=== PATIENT | female | born 1995 | race Caucasian/White ===

== ENCOUNTER 2017-03-08 22:01 | Emergency (ER) ==
[2017-03-08 22:13] VITALS: BP 105/68; TEMP 99.8; BMI 36.8
[2017-03-08] MEDS ORDERED: BOOSTRIX IM ONE (22:49)
--- NOTE | 2017-03-09 09:07 | ED.PDOC ---
General ED Provider: Dr. RANI ALEX Chief Complaint: Foot Pain/Injury Stated Complaint: patient state she jumped from a boat sustaining a laceration to the left foot. Time Seen by Physician: 23:00 Mode of Arrival: Walk-In Information Source: Patient Exam Limitations: No limitations Primary Care Provider: АНДРЕЙ ROSALES Nursing and Triage Documentation Reviewed and Agree: Yes Skin Complaint Exam - Laceration/Lower Ext. Complaint/Exam Location of Injury: Left, Foot Mechanism of Injury: Laceration Onset/Duration: 1 day Symptoms Are: Still present Initial Severity: Moderate Current Severity: Mild Associated Signs and Symptoms: Denies: Fever, Chills, Erythema, Numbness, Tingling Soles of Feet Picture: 1 - V shapped 3 cm skin flap Differential Diagnoses: Laceration Review of Systems - Review Of Systems Constitutional: Reports: No symptoms Eyes: Reports: No symptoms Ears, Nose, Mouth, Throat: Reports: No symptoms Respiratory: Reports: No symptoms Cardiac: Reports: No symptoms GI: Reports: No symptoms : Reports: No symptoms Musculoskeletal: Reports: No symptoms Skin: Reports: Other (left plantar laceration. ) Neurological: Reports: No symptoms Endocrine: Reports: No symptoms Hematologic/Lymphatic: Reports: No symptoms All Other Systems: Reviewed and Negative Past Medical History - Past Medical History Previously Healthy: Yes Endocrine: Reports: None Cardiovascular: Reports: None Respiratory: Reports: None Hematological: Reports: None Gastrointestinal: Reports: None Genitourinary: Reports: None Neuro/Psych: Reports: None Musculoskeletal: Reports: None Cancer: Reports: None Last Menstrual Period: 3-5 WEEKS AGO, PERIODS ARE IRREGULAR - Surgical History General Surgical History: Reports: Unknown - Family History Family History: Reports: Unknown - Social History Smoking Status: Never smoker Hx Substance Use: No Alcohol Screening: Occasionally - Immunizations Tetanus Shot up to Date: No Physical Exam - Physical Exam Appearance: Obese Eyes: ANITA, EOMI, Conjunctiva clear ENT: Ears normal, Nose normal, Oropharynx normal Respiratory: Airway patent, Breath sounds clear, Breath sounds equal, Respirations nonlabored Cardiovascular: RRR, Pulses normal, No rub, No murmur GI/: Soft, Nontender, No masses, Bowel sounds normal, No Organomegaly Musculoskeletal: Normal strength, ROM intact, No edema, No calf tenderness Skin: Warm, Dry Neurological: Sensation intact, Motor intact, Reflexes intact, Cranial nerves intact, Alert, Oriented Psychiatric: Anxious Critical Care Note - Critical Care Note Total Time (mins): 0 Course - Course Orders, Labs, Meds: Orders Category Date Time Status Diphth,Pertuss(Acell),Tet Vac [Boostrix] MEDS 03/08/17 22:49 Discontinued 0.5 ml IM .ONCE ONE Medications Discontinued Medications Generic Name Dose Route Start Last Admin Trade Name Freq PRN Reason Stop Dose Admin Diphtheria/Pertussis/Tetanus Vacc 0.5 ml 03/08/17 22:49 03/08/17 23:15 Boostrix IM 03/08/17 22:50 0.5 ml .ONCE ONE Administration Vital Signs: Temp Pulse Resp BP Pulse Ox 03/08/17 22:03 99.8 F H 84 18 105/68 98 Departure - Departure Time of Disposition: 00:48 Disposition: AMA Discharge Problem: Injury of foot Condition: Fair Pt referred to PMD for follow-up: No (left AMA) Allergies/Adverse Reactions: Allergies No Known Drug Allergies Adverse Reaction (Verified 03/08/17 22:13) Home Medications: Ambulatory Orders 1 [No Reported Medications] 03/08/17
== END 2017-03-08 23:55 | disposition left against medical advice (07) ==
LOC: ED 22:01
DX: S91.312A Laceration without foreign body, left foot, initial encounter (principal); W45.8XXA Other foreign body or object entering through skin, initial encounter
CPT/HCPCS: 90471; 99284

== ENCOUNTER 2017-09-29 14:47 | Emergency (ER) ==
[2017-09-29 14:54] VITALS: BP 115/74; TEMP 99.5; BMI 32.6
--- NOTE | 2017-09-29 15:37 | ED.PDOC ---
General ED Provider: Dr. KATT WILSON Chief Complaint: Vaginal Bleeding Stated Complaint: VAGINAL BLEEDING Time Seen by Physician: 15:00 (SEEN AT ALL TIMES WITH HUBERT) Mode of Arrival: Walk-In Information Source: Patient Exam Limitations: No limitations Nursing and Triage Documentation Reviewed and Agree: Yes (LMP 2 MONTHS AGO HAS HAD 2 EPISODES OF VAGINAL BLEEDING/24 HR) Reviewed sepsis parameters & appropriate labs ordered?: Yes System Inflammatory Response Syndrome: Not Applicable Sepsis Protocol: For patient's 13 years and over: Temp is 96.8 and below OR 101 and greater Pulse >90 BPM Resp >20/minute Acutely Altered Mental Status Are patient's symptoms suggestive of a new infection, such as: -Pneumonia -Skin, Soft Tissue -Endocarditis -UTI -Bone, Joint Infection -Implantable Device -Acute Abdominal Infection -Wound Infection -Meningitis -Blood Stream Catheter Infection -Unknown System Inflammatory Response Syndrome: Not Applicable Complaint Exam - UTI Female Complaint/Exam : 0 Para: 0 Hx Total # of Abortions (Spontaneous & Elective): 0 - Complaint/Exam Onset/Duration: 1 DAY Symptoms Are: Resolved Timing: Intermittent Current Severity: None Location of Pain: Reports: Suprapubic Character: Reports: Cramping Alleviating: Reports: None Associated Signs and Symptoms: Reports: Vaginal bleeding. Denies: Diaphoresis, Back pain, Fever, Hematuria, Dysuria, Constipation, Blood in stool, Rectal pain , Appetite change, Nausea, Vomiting, Decreased urine output, Increased urine frequency, Increased thirst, Decreased activity, Lethargy, Abdominal Pain, Bubble bath use, Vaginal discharge, Genital swelling, Genital blisters, Retained foreign body Review of Systems - Review Of Systems Constitutional: Reports: No symptoms Eyes: Reports: No symptoms Ears, Nose, Mouth, Throat: Reports: No symptoms Respiratory: Reports: No symptoms Cardiac: Reports: No symptoms GI: Reports: Abdominal pain : Reports: Other (VAGINAL BLEEDING) Musculoskeletal: Reports: No symptoms Skin: Reports: No symptoms Neurological: Reports: No symptoms Endocrine: Reports: No symptoms Hematologic/Lymphatic: Reports: No symptoms All Other Systems: Reviewed and Negative Past Medical History - Past Medical History Previously Healthy: Yes Endocrine: Reports: None Cardiovascular: Reports: None Respiratory: Reports: None Hematological: Reports: None Gastrointestinal: Reports: None Genitourinary: Reports: None Neuro/Psych: Reports: None Musculoskeletal: Reports: None Cancer: Reports: None Last Menstrual Period: 2 months ago - Surgical History General Surgical History: Reports: Unknown - Family History Family History: Reports: Unknown - Social History Smoking Status: Never smoker Hx Substance Use: No Alcohol Screening: Occasionally - Immunizations Tetanus Shot up to Date: Yes Physical Exam - Physical Exam Appearance: Well-appearing, No pain distress, Well-nourished Eyes: ANITA, EOMI, Conjunctiva clear ENT: Ears normal, Nose normal, Oropharynx normal Respiratory: Airway patent, Breath sounds clear, Breath sounds equal, Respirations nonlabored Cardiovascular: RRR, Pulses normal, No rub, No murmur GI/: Soft, Nontender, No masses, Bowel sounds normal, No Organomegaly Musculoskeletal: Normal strength, ROM intact, No edema, No calf tenderness Skin: Warm, Dry, Normal color Neurological: Sensation intact, Motor intact, Reflexes intact, Cranial nerves intact, Alert, Oriented Psychiatric: Affect appropriate, Mood appropriate Critical Care Note - Critical Care Note Total Time (mins): 0 Course - Course Hematology/Chemistry: 09/29/17 15:15 Orders, Labs, Meds: Lab Review 09/29/17 09/29/17 09/29/17 15:05 15:05 15:15 WBC 7.40 RBC 4.37 Hgb 13.2 Hct 39.1 MCV 89.5 MCH 30.2 MCHC 33.8 RDW Coeff of Michelle 12.7 Plt Count 213 Immature Gran % (Auto) 0.3 Neut % (Auto) 60.6 Lymph % (Auto) 33.0 Callaway % (Auto) 4.6 Eos % (Auto) 1.1 Baso % (Auto) 0.4 Immature Gran # (Auto) 0.0 Neut # 4.5 Lymph # 2.4 Callaway # 0.3 L Eos # 0.1 Baso # 0.0 Urine Color Yellow Urine Clarity Clear Urine pH 7.5 Ur Specific Harbinger 1.020 Urine Protein Negative Urine Glucose (UA) Negative Urine Ketones Negative Urine Blood Negative Urine Nitrite Negative Urine Bilirubin Negative Urine Urobilinogen 0.2 Ur Leukocyte Esterase Negative Urine Test Negative Orders Category Date Time Status CBC W/ AUTO DIFF Stat LAB 09/29/17 15:15 Completed PARTIAL THROMBOPLASTIN TIME Stat LAB 09/29/17 15:15 Received PT WITH INR Stat LAB 09/29/17 15:15 Received URINALYSIS C & S IF INDICATED Stat LAB 09/29/17 15:05 Completed URINE Stat LAB 09/29/17 15:05 Completed Vital Signs: Temp Pulse Resp BP Pulse Ox 09/29/17 14:49 99.5 F 71 16 115/74 98 Departure - Departure Time of Disposition: 15:37 (ALL LABS REPORTED WITH MONALISA AT BED SIDE ) Disposition: HOME SELF-CARE Discharge Problem: Bleeding from vagina Instructions: Dysfunctional Uterine Bleeding (ED) Condition: Good Pt referred to PMD for follow-up: Yes IPMP verified?: Yes Additional Instructions: Please call your Family Physician as soon as possible to schedule a follow-up appointment. Allergies/Adverse Reactions: Allergies No Known Drug Allergies Adverse Reaction (Verified 09/29/17 14:49) Home Medications: Ambulatory Orders 1 [No Reported Medications] 09/29/17
== END 2017-09-29 15:54 | disposition home or self-care (01) ==
LOC: ED 14:47
DX: N93.8 Other specified abnormal uterine and vaginal bleeding (principal)
CPT/HCPCS: 36415; 81001; 81025; 85025; 85610; 85730; 99283

== ENCOUNTER 2017-11-05 11:44 | Outpatient (CLI) ==
--- NOTE | 2017-11-05 12:46 | DI ---
Exam: Three x-rays of the left foot. Comparison: None available. Reason for exam: Trauma. FINDINGS: No acute fracture or malalignment. The joint spaces are well maintained. No unexplained calcific soft tissue density or radiopaque retained foreign body. Impression: No acute fracture or malalignment is seen in the left foot.
== END 2017-11-05 11:45 | disposition home or self-care (01) ==
LOC: RAD 11:44
PROVIDERS: ATTEND Family Medicine
DX: S99.922A Unspecified injury of left foot, initial encounter (principal); W22.8XXA Striking against or struck by other objects, initial encounter

== ENCOUNTER 2017-11-16 13:00 | Outpatient (RCR) ==
--- NOTE | 2017-11-10 08:51 | RS.OPPTEV2 ---
Date of Note: 11/09/17 Visit #: 1 Date of Evaluation: 11/09/17 Payer Source: Medicaid Surgery Performed?: No Treatment Diagnosis: bulging lumbar disc, acute bilateral low back pain with right side sciatica History of Condition/Mechanism of Injury:: pt reports she has been having LBP off and on approx 1 year and has gotten much worse since 10/15/17 Prior Level of Function.....Patient was independent with: ADL's, Self Care, Work /Vocation, Ambulation/Mobility, Community Integration/Access Functional Limitations: Pulling, Lifting, Standing, Bending, Squatting, Ambulation Current Subjective/complaints:: pt states her back began hurting much worse since 10/15/17. pt states she works at [email or web address] in [place] Treatment Side (optional): Right *Precautions: n/a Medical History Medical History: Unremarkable Smoking Status: Never smoker Diagnostic Testing/Imaging:: CT scan results: disc bulging with central left paracentral disc protrusion. mild diffuse disc bulging L5-S1 Hx Home Medications: flexeril,ibuprofen Patient's Goals: decreased low back pain Pain Assessment - Pain Description Pain Location: R lumbar and SI area Pain Description: Sharp, Aching Current Pain Intensity: 2/10 Worst Pain Intensity: increased to 5/10 with activity Functional Outcome Measure Oswestry LBP: 16 (32%) - G Codes & Severity Modifier G Codes & Modifier: n/a Source of G Code score: n/a Observation - Observation Posture: Forward Head, Rounded Shoulders Handedness: Right Gait - Gait Pattern General Gait Pattern Observation: No Deviations/Normal General Range of Motion: WFL's Muscle Strength: RLE hip flex 4/5, knee flex/ext 5/5, ankle DF/PF 5/5. LLE hip flex 5/5, knee flex/ext 5/5, ankle DF/PF 5/5 - ROM Lumbar Flexion: Hand reach to ankles Sidebending to Left: Reach to Mid-thigh Sidebending to Right: Reach to Lateral Joint Line Lumbar Spine ROM Limitations: Soft Tissue Tightness, Muscle Weakness, Pain - Special Tests NILS Test: Positive Left Seated Dural Stretch Test: Positive Left, Positive Right Palpation Palpation Findings: Tenderness, Trigger Point, Muscle Guarding Comments:: trigger points noted in area of R SI as well as R lumbar. pt with B hamstring tightness L worse than R. B piriformis tightness Sensation - Sensation Right Upper Extremity: Intact/Normal Left Upper Extremity: Intact/Normal Right Lower Extremity: Impaired Left Lower Extremity: Intact/Normal Sensation Description: Paresthesia Balance - Sitting Balance Static Sitting Balance: Normal Dynamic Sitting Balance: Normal - Standing Balance Static Standing Balance: Normal Dynamic Standing Balance: Normal - Heat/Cryotherapy Treatment: Cryotherapy Comments:: R lumbosacral area Interventions - Exercise/Activities/Manual Therapy Exercises/Activities: pt performed isometric hip add, prone lying, hamstring stretches. Manual Therapy: gentle joint mobilization at SI HOME EXERCISE PROGRAM: pt given written HEP including hamstring stretches, piriformis stretch, isometric hip add, resisted hip flex, prone lying - Charges Timed Code Treatment Minutes: 40 Total Treatment Time: 50 Procedures billed for this date of service:: eval low, Cold pack EVALUATION COMPLEXITY LEVEL EVALUATION COMPLEXITY LEVEL: HISTORY: Low (back pain), EXAM OF BODY SYSTEMS: Medium (musculoskeletal, pain), CLINICAL PRESENTATION: Low, CLINICAL DECISION MAKING: Medium Assessment Assessment: pt presents with hamstring tightness L worse than R, piriformis tightness. pt also with pain in R lumbar, sacral area radiating into RLE to knee. pt also presents with slight posteriorly rotated SI with muscle guarding and trigger points to R lumbosacral areas. Patient Education: Home Exercise Program, Education of Plan of Care Rehab Potential: Good Short Term Goals Goal #1: pt rate pain < 4/10 with activity Goal to be met by: 11/20/17 Goal #2: pt decreased L hamstring tightness equal to R Goal to be met by: 11/20/17 Long-Term Goals Goal #1: pt rate pain <2/10 R lumbsacral area Goal to be met by: 12/04/17 Goal #2: pt muscle strength R hip flex 5/5 Goal to be met by: 12/04/17 Goal #3: pt report increased ability to perform tasks at work with decreased pain Goal to be met by: 12/04/17 Goal #4: pt independent with HEP Goal to be met by: 12/04/17 Plan - Treatment to be Provided Procedures: Therapeutic Exercises, Therapeutic Activity, Manual Therapy, Massage , Patient Education Modalities: Electrical Stimulation, Ultrasound/Phonophoresis, Class IV Laser, Cryotherapy, Hot Packs - Treatment Plan Frequency: 2 X week Duration: 4 weeks ORDER # VISITS AND/OR THROUGH DATE: 12/04/17 - Treatment Code (1) Low back pain Code(s): M54.5 - LOW BACK PAIN Qualifiers: Chronicity: acute Back pain laterality: right Sciatica presence: with sciatica Sciatica laterality: sciatica of right side Qualified Code(s): M54.41 - Lumbago with sciatica, right side (2) Bulging lumbar disc Code(s): M51.26 - OTHER INTERVERTEBRAL DISC DISPLACEMENT, LUMBAR REGION (3) Muscle tightness Code(s): M62.89 - OTHER SPECIFIED DISORDERS OF MUSCLE
--- NOTE | 2017-11-12 14:42 | RS.OPPTDN ---
Subjective Date of Note: 11/12/17 Visit #: 2 Date of Evaluation: 11/09/17 Payer Source: Medicaid Treatment Diagnosis: bulging lumbar disc, acute bilateral low back pain with right side sciatica Current Subjective/complaints:: Patient says her pain is not bad right now. Reports she is coming from work. Rates pain 3/10. She says back hurts the most with return from squatting position and standing a long time. She says she has to go tomorrow to [place] to get an MRI. *Precautions: n/a Pain Assessment - Pain Description Pain Location: bilateral low back, more R sided Pain Description: Tightness - Treatment Modality: Ultrasound Parameters/Method Applied: continuous @ 1.5 w/cm2 x 12 mins bilateral lumbar paraspinals Patient Position: Left Sidelying - Heat/Cryotherapy Treatment: Hot Pack (mid to low back in supine x 15 ) Interventions - Exercise/Activities/Manual Therapy Exercises/Activities: Patient receives passive SKTC, HS, heel cords, Piriformis , and fig 4 stretching bilaterally x 3 Total minutes of Exercise: 12 Manual Therapy: na HOME EXERCISE PROGRAM: pt given written HEP including hamstring stretches, piriformis stretch, isometric hip add, resisted hip flex, prone lying - Charges Timed Code Treatment Minutes: 24 Total Treatment Time: 44 Procedures billed for this date of service:: hp, u/s, ex Assessment: Patient appears to nano treatment well with reporting relief after u/ s. HS and piriformis tight on the R, figure 4 stretching tight on the L. She only has mild discomfort with stretching. Patient Education: Education of diagnosis, Body/Joint mechanics, Home Exercise Program, Education of Plan of Care Patient demonstrates compliance with HEP?: Yes (Patient has initiated) Short Term Goals Goal #1: pt rate pain < 4/10 with activity Goal to be met by: 11/20/17 Goal #2: pt decreased L hamstring tightness equal to R Goal to be met by: 11/20/17 Events Specialist Goals Goal #1: pt rate pain <2/10 R lumbsacral area Goal to be met by: 12/04/17 Goal #2: pt muscle strength R hip flex 5/5 Goal to be met by: 12/04/17 Goal #3: pt report increased ability to perform tasks at work with decreased pain Goal to be met by: 12/04/17 Goal #4: pt independent with HEP Goal to be met by: 12/04/17 Plan PLAN OF CARE EXPIRES ON:: 12/04/17 ORDER # VISITS AND/OR THROUGH DATE: 12/04/17 PLAN: BIW for modalities and therex to the LB
--- NOTE | 2017-11-16 15:36 | RS.OPPTDN ---
Subjective Date of Note: 11/16/17 Visit #: 3 Date of Evaluation: 11/09/17 Payer Source: Medicaid Treatment Diagnosis: bulging lumbar disc, acute bilateral low back pain with right side sciatica Current Subjective/complaints:: Patient says she felt relief with previous u/s. She says she has mild pain and tightness across the low back presently. *Precautions: n/a Pain Assessment - Pain Description Pain Location: does not rate - Treatment Modality: Ultrasound Parameters/Method Applied: continuous @ 1.5 w/cm2 x 12 mins to bilateral lumbar paraspinals, focus on the R side. Patient Position: Left Sidelying - Heat/Cryotherapy Treatment: Hot Pack (mid to low back in supine x 15 mins) Interventions - Exercise/Activities/Manual Therapy Exercises/Activities: Patient continues to receive passive SKTC, HS, heel cords , Piriformis, and fig 4 stretching bilaterally x 3. Lower trunk rotation x 4. Reviewed proper body mechanics/postural techniques to aid in pain relief. Total minutes of Exercise: 16 Manual Therapy: na HOME EXERCISE PROGRAM: pt given written HEP including hamstring stretches, piriformis stretch, isometric hip add, resisted hip flex, prone lying - Charges Timed Code Treatment Minutes: 28 Total Treatment Time: 53 Procedures billed for this date of service:: hp, u/s, ex Assessment: Patient admits improved back pain following treatment today as well as previous visit. She was able to enjoy fishing over the weekend without causing increase in pain. Patient Education: Education of diagnosis, Body/Joint mechanics, Home Exercise Program Patient demonstrates compliance with HEP?: Yes Short Term Goals Goal #1: pt rate pain < 4/10 with activity Goal to be met by: 11/20/17 Goal #2: pt decreased L hamstring tightness equal to R Goal to be met by: 11/20/17 Nurse Advisor Goals Goal #1: pt rate pain <2/10 R lumbsacral area Goal to be met by: 12/04/17 Goal #2: pt muscle strength R hip flex 5/5 Goal to be met by: 12/04/17 Goal #3: pt report increased ability to perform tasks at work with decreased pain Goal to be met by: 12/04/17 Goal #4: pt independent with HEP Goal to be met by: 12/04/17 Plan PLAN OF CARE EXPIRES ON:: 12/04/17 ORDER # VISITS AND/OR THROUGH DATE: 12/04/17 PLAN: continue with modalties and therex for the low back
--- NOTE | 2017-11-19 13:56 | RS.CXNS ---
Date of scheduled appointment: 11/19/17 Type: Rescheduled
--- NOTE | 2017-11-20 08:38 | RS.CXNS ---
Date of scheduled appointment: 11/20/17 Type: No Show
--- NOTE | 2017-12-07 15:30 | RS.QUICKDC ---
Discharge from PT Date of Discharge: 12/07/17 Number of Visits: 3 Reason for Discharge: Patient no showed last two scheduled appts. No contact was made to further her visits. Patient received heat, ultrasound, and therex for her low back. Slight improvement made with initial treatment. See daily notes for specific treatment.
== END 2017-12-05 ==
PROVIDERS: ATTEND Physician Assistant
DX: M51.26 Other intervertebral disc displacement, lumbar region (principal)

== ENCOUNTER 2018-07-21 05:16 | Emergency (ER) ==
[2018-07-21 05:31] VITALS: BP 123/78; TEMP 98.6; BMI 31.9
--- NOTE | 2018-07-21 05:43 | ED.PDOC ---
General ED Provider: Dr. DEBORA STEELE-ER Chief Complaint: Back Pain Stated Complaint: my back is hurting and goes down my right leg--my pcp is trying to get me into a specialist and to get a mri of the leg Time Seen by Physician: 05:42 Mode of Arrival: Walk-In Information Source: Patient Exam Limitations: No limitations Primary Care Provider: VERO LAMBERT Nursing and Triage Documentation Reviewed and Agree: Yes Does patient meet sepsis criteria?: No System Inflammatory Response Syndrome: Not Applicable Sepsis Protocol: For patient's 13 years and over: Temp is 96.8 and below OR 101 and greater Pulse >90 BPM Resp >20/minute Acutely Altered Mental Status Are patient's symptoms suggestive of a new infection, such as: -Pneumonia -Skin, Soft Tissue -Endocarditis -UTI -Bone, Joint Infection -Implantable Device -Acute Abdominal Infection -Wound Infection -Meningitis -Blood Stream Catheter Infection -Unknown Musculoskeletal Complaint Exam - Lower Extremity Complaint/Exam Location of Pain: Reports: Leg Mechanism of Injury: Reports: No known trauma Onset/Duration: several mos Symptoms Are: Still present Onset of Pain: Reports: Immediate Initial Severity: Mild Current Severity: Mild Location: Reports: Discrete Character: Reports: Dull, Aching, Spasmodic Aggravating: Reports: Movement Able to Bear Weight: Yes Associated Signs and Symptoms: Denies: Swelling, Redness, Bruising, Fever, Weakness, Numbness, Tingling Septic Arthritis Risk Factors: Reports: None Lower Extremity Findings: Present: Tenderness, Limited range of motion NV Bundle Intact Distal to Injury: Yes Compartment Syndrome Risk Factors: Present: Pain Marianne's Sign Present: No Differential Diagnoses: Sciatica Review of Systems - Review Of Systems Constitutional: Reports: No symptoms Eyes: Reports: No symptoms Ears, Nose, Mouth, Throat: Reports: No symptoms Respiratory: Reports: No symptoms Cardiac: Reports: No symptoms GI: Reports: No symptoms : Reports: No symptoms Musculoskeletal: Reports: Back pain, Muscle pain Skin: Reports: No symptoms Neurological: Reports: No symptoms Endocrine: Reports: No symptoms Hematologic/Lymphatic: Reports: No symptoms All Other Systems: Reviewed and Negative Past Medical History - Past Medical History Previously Healthy: Yes Endocrine: Reports: None Cardiovascular: Reports: None Respiratory: Reports: None Hematological: Reports: None Gastrointestinal: Reports: None Genitourinary: Reports: None Neuro/Psych: Reports: None Musculoskeletal: Reports: None Cancer: Reports: None Last Menstrual Period: PRESENTLY - Surgical History General Surgical History: Reports: Unknown - Family History Family History: Reports: Unknown - Social History Smoking Status: Never smoker Hx Substance Use: No Alcohol Screening: Occasionally - Immunizations Tetanus Shot up to Date: Yes Physical Exam - Physical Exam Appearance: Well-appearing, No pain distress, Well-nourished Eyes: ANITA, EOMI, Conjunctiva clear ENT: Ears normal Neck: Supple Respiratory: Airway patent Cardiovascular: RRR GI/: Soft Musculoskeletal: Limited ROM Skin: Warm, Dry, Normal color Neurological: Sensation intact, Alert, Oriented Psychiatric: Affect appropriate, Mood appropriate Critical Care Note - Critical Care Note Total Time (mins): 0 Course - Course Orders, Labs, Meds: ms cortés has chronic sciatica pain and is frustrated with her insurance being slow to approve testing and referrals--no leg swelling upon measurements by nursing staff---she went to [facility] last week for tx--i did encourage her to speak to her pcp today) Vital Signs: Temp Pulse Resp BP Pulse Ox 07/21/18 05:17 98.6 F 78 18 123/78 98 Departure - Departure Time of Disposition: 05:46 Disposition: HOME SELF-CARE Discharge Problem: Sciatic nerve pain Qualifiers: Laterality: right Qualified Code(s): M54.31 - Sciatica, right side Instructions: Sciatica (ED), Lumbar Radiculopathy (ED) Condition: Fair Pt referred to PMD for follow-up: Yes IPMP verified?: No Additional Instructions: medrol dose pack---flexeril 10mg tid prn #30---neurontin 100mg tid prn pain #30- -talk to your pcp today about referral to [facility] Allergies/Adverse Reactions: Allergies No Known Drug Allergies Adverse Reaction (Verified 07/21/18 05:29) Home Medications: Ambulatory Orders 1 [Unobtainable] 07/21/18 Disposition Discussed With: Patient
== END 2018-07-21 05:54 | disposition home or self-care (01) ==
LOC: ED 05:16
DX: M54.31 Sciatica, right side (principal)
CPT/HCPCS: 99282

== ENCOUNTER 2019-02-12 02:10 | Outpatient (CLI) ==
[2019-02-12 03:03] VITALS: BMI 29.7
== END 2019-02-12 02:44 | disposition critical access hospital (66) ==
LOC: AMBL 02:10
PROVIDERS: ATTEND Emergency Medicine
DX: M25.551 Pain in right hip (principal); M79.604 Pain in right leg; M79.642 Pain in left hand; V49.9XXA Car occupant (driver) (passenger) injured in unspecified traffic accident, initial encounter

== ENCOUNTER 2019-02-12 02:52 | Emergency (ER) | payer OTHER ==
[2019-02-12 03:03] VITALS: BP 110/53; TEMP 98.2; BMI 29.7
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
[2019-02-12 03:46] LABS: URINE PREGNANCY TEST NEGATIVE (NEGATIVE)
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
== END 2019-02-12 04:44 | disposition home or self-care (01) ==
LOC: ED 02:52
DX: S39.92XA Unspecified injury of lower back, initial encounter (principal); V89.2XXA Person injured in unspecified motor-vehicle accident, traffic, initial encounter
CPT/HCPCS: 36415; 80053; 80306; 80307; 81001; 81025; 85025; 99283